=== PATIENT | female | born 1960 | race Caucasian/White ===

== ENCOUNTER 2021-06-11 14:53 | Inpatient (IN) | payer OTHER, SELFPAY ==
[2021-06-11] VITALS (7 sets, daily range): BP systolic 79–104; BP diastolic 56–78; PULSE 94–130; RESP 18–26; TEMP 36.3; O2SAT 95–98
--- NOTE | ~2021-06-11 | XR_ITS ---
EXAMINATION: XR chest 2V DATE: 06/11/2021 15:52 INDICATION: Right upper extremity infection TECHNIQUE: AP and lateral views of the chest are obtained. COMPARISON: None available FINDINGS: The lungs are free of acute opacities. There is no pleural effusion or pneumothorax. The ca rdiomediastinal silhouette is normal. There are bridging osteophytes at multiple levels in the spine, consistent with diffuse idiopathic skeletal hyperostosis (DISH). IMPRESSION: 1. No acute cardiopulmonary abnormality. Reviewed, dictated and finalized at location A.
--- NOTE | ~2021-06-11 | CT_ITS ---
EXAMINATION: CT UE RT w con INDICATION: Tunneling infection of the axilla and proximal right arm TECHNIQUE: Computed tomographic images of the right upper extremity were obtained after the administr ation of 100 cc of Omnipaque 350 intravenous contrast. The dose-length product (DLP) was 1154.99 mGy- cm. Automated exposure control and iterative reconstruction technique were employed. COMPARISON: None available FINDINGS: There is extensive soft tissue swelling, edema, and soft tissue gas in the medial aspect of the proximal right arm. Soft tissue gas tracks into the axilla. There is an approximately 2.5 x 1.1 cm superficial subcutaneous abscess seen on image 69. The inflammatory change appears to be superfici al to the fascia of the upper extremity musculature. The visualized osseous structures are unremarkab le. Incidental note is made of cholelithiasis. There is also a questionable right kidney mass. IMPRESSION: 1. Extensive soft tissue swelling, edema, and soft tissue gas in the medial aspect of the proximal ri ght arm with a 2.5 cm subcutaneous abscess of the right axilla. 2. Possible right kidney mass. Recommend correlation with urinalysis and follow-up CT or MRI without and with contrast. 3. Cholelithiasis. Reviewed, dictated and finalized at location A. IMPRESSION: 1. Extensive soft tissue swelling, edema, and soft tissue gas in the medial asp ect of the proximal right arm with a 2.5 cm subcutaneous abscess of the right a xilla. 2. Possible right kidney mass. Recommend correlation with urinalysis and follow -up CT or MRI without and with contrast. 3. Cholelithiasis.
--- NOTE | 2021-06-11 15:24 | ECG_ITS ---
Measurements Intervals [place] Rate: 118 P: [place]: 0 QRS: 99 QRSD: 99 T: -53 QT: 321 QTc: 451 Interpretive Statements ATRIAL FIBRILLATION WITH RAPID VENTRICULAR RESPONSE RIGHT AXIS DEVIATION INCOMPLETE RIGHT BUNDLE BRANCH BLOCK T WAVE ABNORMALITY IN ANTERIOR LEADS- CONSIDER ISCHEMIA BASELINE ARTIFACT- I, II, III, AVR, AVL, AVF ABNORMAL ECG Electronically Signed On 06-11-2021 15:35:55 CDT by Abelardo Biggs D.O.
[2021-06-11 15:35] LABS: Basophils Percent Auto 0.1 % (0.2-1.2); Eosinophils Percent Auto 0.2 % (0-4.4); Hematocrit 42.3 % (37.0-47.0); Hemoglobin 13.7 g/dL (12.0-15.0); Immature Granulocyte Absolute 1.14 K/mm3 (0.00-0.031); Immature Granulocyte Percent A 4.7 % (0-0.5); Lymphocytes Absolute Auto 1.12 K/mm3 (0.9-3.2); Lymphocytes Percent Auto 4.6 % (18.3-44.2); Mean Corpuscular HGB Conc 32.4 g/dl (32-36); Mean Corpuscular Hemoglobin 33.2 pg (26-34); Mean Corpuscular Volume 102.4 fl (80-100); Mean Platelet Volume 9.1 fl (7.4-10.4); Monocytes Absolute Auto 1.5 K/mm3 (0.1-0.6); Monocytes Percent Auto 6.3 % (2.6-8.5); Neutrophils Absolute Auto 20.4 K/mm3 (1.3-6.7); Neutrophils Percent Auto 84.1 % (45.5-73.1); Platelet Count Result 445 k/mm3 (150-375); Red Blood Count 4.13 M/mm3 (4.2-5.4); Red Cell Distribution Width 13.2 % (11.5-14.5); White Blood Count 24.3 K/mm3 (4.5-10.0)
[2021-06-11 15:44] LABS: Lactic Acid Reflex 2.4 mmol/L (0.7-2.1)
[2021-06-11 15:46] LABS: Partial Thromboplastin Time 26.6 SECONDS (22.3-36.8); Prothrombin Time 13.2 Seconds (11.1-14.7)
[2021-06-11 15:59] LABS: Estimated CRCL calculation 47 ml/min; Estimated Glomerular Filt Rate 36
[2021-06-11] MEDS: SODIUM CHLORIDE 0.9% IV 1,000 ML 999 ML IV CONT ×3 (16:12→17:02)
[2021-06-11 16:21] LABS: Alanine Aminotransferase 15 U/L (4-35); Albumin Level 3.1 g/dL (3.5-5.1); Alkaline Phosphatase 118 U/L (38-126); Anion Gap 14 mmol/L (8-16); Aspartate Amino Transferase 18 U/L (14-36); Bilirubin,Total 0.5 mg/dL (0.2-1.3); Blood Urea Nitrogen 52 mg/dL (7-17); Calcium 9.4 mg/dL (8.4-10.2); Carbon Dioxide 22 mmol/L (22-30); Chloride 96 mmol/L (98-107); Estimated CRCL calculation 47 ml/min; Estimated Glomerular Filt Rate 36; Glucose 91 mg/dL (65-110); Potassium 4.9 mmol/L (3.4-5.0); Sodium 132 mmol/L (137-145)
--- NOTE | 2021-06-11 16:38 | ED.WOUNDLAC ---
HPI - Wound/Laceration General Chief Complaint: Wound/Laceration Stated Complaint: wound on arm Time Seen by Provider: 06/11/21 15:20 History of Present Illness HPI narrative: Patient is a 60-year-old female who presents ER with a wound to her right axilla and arm. Patient reports she noticed a bump to her axillae and arm 3 days ago. She then saw her PCP who placed her on cephalexin. She reports she has developed redness and the wound is opened up and started to drain. Denies fevers or chills or sweats. She does have some weakness/fatigue. No known injury to the arm or break in skin that could have introduced infection. Does not have history of recurrent infections axilla. Patient denies any breast mass or known history of cancer. Related Data Home Medications Medication Instructions Recorded Confirmed aspirin [Adult Low Dose Aspirin] 81 mg PO DAILY 06/11/21 06/11/21 cephalexin 500 mg PO QID 06/11/21 06/11/21 lisinopril 40 mg PO DAILY 06/11/21 06/11/21 metoprolol tartrate 100 mg PO Q12H 06/11/21 06/11/21 Allergies Allergy/AdvReac Type Severity Reaction Status Date / Time Sulfa (Sulfonamide Allergy Unknown Verified 06/11/21 15:25 Antibiotics) Review of Systems Review of Systems: All systems reviewed & are unremarkable except as noted in HPI and below Constitutional: Constitutional: Denies chills, Reports fatigue, Denies fever(s) and Reports weakness ENT: Denies nasal congestion and Denies sore throat Cardiovascular: Cardiovascular: Denies chest pain and Denies radiating jaw, neck or arm pain Respiratory: Respiratory: Denies cough, Denies dyspnea and Denies wheezing Gastrointestinal: Gastrointestinal: Denies abdominal pain, Denies nausea and Denies vomiting Integumentary/Breasts: Comments: Draining wounds to the axilla and right arm with surrounding cellulitis discomfort. [facility] Past Medical History Medical History (Updated 06/11/21 @ 23:57 by Bhavesh Pizarro MD) Atrial fibrillation Hypertension Surgical History Surgical History (Updated 06/11/21 @ 23:53 by Bhavesh Pizarro MD) No pertinent past surgical history Family History Family History (Updated 06/11/21 @ 22:51 by Jovana Barry RN) Grandparent Acute myocardial infarction paternal grandmother, resulting in Mother Chronic obstructive pulmonary disease Hypertension Atrial fibrillation Sibling Chronic obstructive pulmonary disease Grandparent Brain tumor Maternal grandmother Social History Social History Smoking packs per day: 1 Smoking cigarettes per day: 20.0 Years smoked: 42 Smoking pack-years: 42.00 Smoking status: Current every day smoker Alcohol intake: current Drinks per week: 14 Substance use: never Gender identity (if verbalized by the patient): Female Spiritual care concerns: No Exam Narrative: GENERAL: Well-appearing, well-nourished, and in no acute distress. HEAD: Normocephalic, atraumatic. EYES: PERRL and EOMI. ENT: Mucous membranes moist. CHEST: Clear to auscultation. No respiratory distress. Breast exam with out discernible mass bilaterally. HEART: Tachycardic with an irregular regular rate and rhythm. Normal peripheral pulses. ABDOMEN: Soft, nontender, nondistended. EXTREMITIES: Normal range of motion. No edema. SKIN: Warm, dry. Cellulitis with open wound to the right upper extremity. There is a draining abscess to the axilla with cellulitis and induration surrounding it. Cellulitis extends to the mid upper arm midline of the humerus and has a half dollar sized area of necrotic tissue with some surrounding bruising. There is forensic dna analyst erythema in this area with draining purulent material as well. Cellulitis does not extend to the elbow. NEURO: Alert and oriented x3. PSYCH: Normal mood and affect. Course Course Emergency Course: Patient with persistently draining malodorous wound. Discussed case with general surgery and plan is to do bride in
[2021-06-11 17:10] LABS: CRP 25.3 mg/dL (<1.0)
--- NOTE | 2021-06-11 18:14 | PM.IMHP ---
H&P: HPI History of Present Illness Date/Time: 06/11/21 18:14 she is a 60-year-old female with past medical history of history of atrial fibrillation, hypertension and significant smoking history who came to the ED with complaints of right forearm and axilla wound and found smelling discharge. She started noticing and lost Sunday. She went to see her primary care physician who has started her on cephalexin. She was hypotensive with her blood pressure being in mid 90s. She was told to stop taking 2 of her blood pressure medication. She could recall hydrochlorothiazide but could not tell me about the other blood pressure medication. Her status does not improve and continued to have significant for smelling discharge and came into the ED for further medical management. She denied have any trauma or injury to the area. She denied have any fever chills. She denied have any nausea vomiting or abdominal pain. She denied have any chest pain. She has been complaining of shortness of breath with exertion but that seems her baseline as well. Her appetite is very poor. She has been a smoker and smoking 1 pack per day since she is 18-year-old. She also has lower extremity wound with drainage for the last few months now which she has been applying a bandage. She was found borderline hypotensive in the emergency department and received IV fluids. Her leukocyte count is 24.3. Lactic is 2.4. General surgery was consulted for incision and drainage. Chief Complaint: Right forearm and axilla wound with malodorous discharge Review of Systems Review of Systems: A comprehensive review of systems has been reviewed with the patient and most of the symptoms are negative except the one's mentioned above in HPI. [facility] Social History Social History Gender identity (if verbalized by the patient): Female Meds Home Medications and Allergies Home Medications Medication Instructions Recorded Confirmed Type cephalexin 500 mg PO QID 06/11/21 06/11/21 History lisinopril 40 mg PO DAILY 06/11/21 06/11/21 History metoprolol tartrate 100 mg PO Q12H 06/11/21 06/11/21 History Allergies Allergy/AdvReac Type Severity Reaction Status Date / Time Sulfa (Sulfonamide Allergy Unknown Verified 06/11/21 15:25 Antibiotics) Vital Signs Vital Signs - 24 hr 06/11/21 15:08 06/11/21 15:22 06/11/21 17:12 Temperature 36.3 C L Pulse Rate 94 112 H 118 H Respiratory Rate 18 26 H 24 H Blood Pressure 79/56 L 98/78 L Pulse Oximetry 95 97 98 Exam Narrative: General awake and alert not in acute distress Eyes PERRLA normal conjunctiva no discharge HEENT no discharge Neck supple CVS S1-S2 no murmur Respiratory no wheezes or crepitation respiration nonlabored GI soft nontender nondistended Chest wall no tenderness or deformity Back nontender no deformity [employer] alert oriented x3 Psychiatric cooperative appropriate mood and affect Extremities bandages in the cough area H&P: Results Labs Labs: Short CBC 06/11/21 Range/Units 15:26 WBC 24.3 H (4.5-10.0) K/mm3 Hgb 13.7 (12.0-15.0) g/dL Hct 42.3 (37.0-47.0) % Plt Count 445 H (150-375) k/mm3 BMP 06/11/21 06/11/21 15:26 15:55 Sodium 132 L Potassium 4.9 Chloride 96 L Carbon Dioxide 22 BUN 52 H Creatinine 1.50 H 1.50 Glucose 91 Calcium 9.4 Liver Function 06/11/21 Range/Units 15:26 Total Bilirubin 0.5 (0.2-1.3) mg/dL AST 18 (14-36) U/L ALT 15 (4-35) U/L Alkaline Phosphatase 118 (38-126) U/L Albumin 3.1 L (3.5-5.1) g/dL Assessment and Plan Assessment and plan (1) Cellulitis and abscess of other specified site: Code(s): L03.818 - Cellulitis of other sites; L02.818 - Cutaneous abscess of other sites Status: Acute Assessment and Plan: she has received Zosyn in the emergency department. I will add vancomycin to her regimen. Wound culture have been sent from the emergency de
[2021-06-11 18:32] LABS: Reflex Lactic Acid Yes or No Add Lactic
[2021-06-11 20:28] LABS: Basophils Absolute Auto 0.2 K/mm3 (0.0-0.1); Basophils Percent Auto 0.9 % (0.2-1.2); Eosinophils Percent Auto 0.1 % (0-4.4); Hematocrit 41.6 % (37.0-47.0); Hemoglobin 13.3 g/dL (12.0-15.0); Immature Granulocyte Absolute 0.21 K/mm3 (0.00-0.031); Immature Granulocyte Percent A 0.9 % (0-0.5); Lymphocytes Absolute Auto 1.06 K/mm3 (0.9-3.2); Lymphocytes Percent Auto 4.7 % (18.3-44.2); Mean Corpuscular Hemoglobin 32.8 pg (26-34); Mean Corpuscular Volume 102.7 fl (80-100); Mean Platelet Volume 9.1 fl (7.4-10.4); Monocytes Absolute Auto 1.2 K/mm3 (0.1-0.6); Monocytes Percent Auto 5.4 % (2.6-8.5); Neutrophils Absolute Auto 19.6 K/mm3 (1.3-6.7); Platelet Count Result 409 k/mm3 (150-375); Red Blood Count 4.05 M/mm3 (4.2-5.4); Red Cell Distribution Width 13.1 % (11.5-14.5); White Blood Count 22.3 K/mm3 (4.5-10.0)
[2021-06-11 20:38] LABS: Prothrombin Time 13.2 Seconds (11.1-14.7)
[2021-06-11 20:39] LABS: Anion Gap 12 mmol/L (8-16); Blood Urea Nitrogen 47 mg/dL (7-17); Calcium 8.4 mg/dL (8.4-10.2); Carbon Dioxide 18 mmol/L (22-30); Chloride 103 mmol/L (98-107); Estimated CRCL calculation 54 ml/min; Estimated Glomerular Filt Rate 42; Glucose 83 mg/dL (65-110); Potassium 4.4 mmol/L (3.4-5.0); Sodium 133 mmol/L (137-145)
--- NOTE | 2021-06-11 21:15 | PC.NURSE ---
This patient, Alba Alcantara, was admitted to IMU Room 210-01. Patient oriented to hospital policies and general routines including ID bracelet, bed and alarms, visiting hours, pain management, procedures, bathroom and other care routines, personal items, smoking policy, room service/diet, and visiting hours. Information on how to activate the Rapid Response Team has been discussed. Patient encouraged to report perceived risks to care and to ask questions if they do not understand what they are told or what they should do.
[2021-06-11] MEDS: LACTATED RINGERS 1,000 ML 100 ML IV CONT (21:47)
[2021-06-11 23:12] LABS: Add Urine Microscopic? YES; Appearance Urine Clear (Clear); Bilirubin Urine Negative (Negative); Blood Urine 1+ (Negative); Color Urine Yellow (Yellow); Glucose Urine UA Negative (Negative); Ketones Urine Negative (Negative); Leukocyte Esterase Ur Negative LEU/UL (Negative); Nitrate Urine Negative (Negative); Protein Urine Negative (Negative); RBC Urine 0-2 /hpf (0-2); Squamous Epithelial Cell Urine Rare /hpf (Few); WBC Urine 0-3 /hpf
[2021-06-11] MEDS: CLINDAMYCIN 600 MG/D5W 50 ML 600 MG/50 ML PIGGYBACK 100 MG IVPB (23:33)
[2021-06-12 00:05] VITALS: BP 110/64; PULSE 100; RESP 20; TEMP 36.6; O2SAT 9
[2021-06-12 00:07] VITALS: O2SAT 98
--- NOTE | 2021-06-12 00:09 | PM.TDS ---
Transfer Discharge Sum: Prov Provider Date of admission: 06/11/21 18:08 Primary care physician: Yonas Rooney, Admitting clinician: Donovan Young MD Consults: 06/11/21 Consult to Physician Routine Comment: Consulting Provider: call center support representative/ group to consult: general Surgery Reason for consultation: cellulitis with abscess Has provider been notified: No Wound/ET Consult Routine Reason for Consult:: Wounds on lower extremities 06/11/21 17:55 Consult to Physician Routine Comment: Consulting Provider: call center support representative/MD group to consult: Wilberto Reason for consultation: arm wound Has provider been notified: Yes DS: Admitting Diagnosis Admitting Diagnosis Cellulitis with abscess, sepsis DS: Discharge Diagnosis Discharge Diagnosis (1) Sepsis: Qualifiers: Sepsis type: sepsis due to unspecified organism Sepsis acute organ dysfunction status: with acute organ dysfunction Severe sepsis acute organ dysfunction type: acute renal failure Acute renal failure type: unspecified Severe sepsis shock status: without septic shock Qualified Code(s): A41.9 - Sepsis, unspecified organism; R65.20 - Severe sepsis without septic shock; N17.9 - Acute kidney failure, unspecified Code(s): A41.9 - Sepsis, unspecified organism Status: Acute (2) Hypotension: Qualifiers: Hypotension type: hypotension due to hypovolemia Qualified Code(s): I95.89 - Other hypotension; E86.1 - Hypovolemia Code(s): I95.9 - Hypotension, unspecified Status: Acute (3) Necrotizing fasciitis of upper arm: Code(s): M72.6 - Necrotizing fasciitis Status: Acute (4) Mass of kidney: Code(s): N28.89 - Other specified disorders of kidney and ureter Status: Acute Transfer Discharge Sum: Med Medications Active and Home Medications: Home Medications aspirin [Adult Low Dose Aspirin] 81 mg PO DAILY 06/11/21 [History Confirmed 06/11/21] cephalexin 500 mg PO QID 06/11/21 [History Confirmed 06/11/21] lisinopril 40 mg PO DAILY 06/11/21 [History Confirmed 06/11/21] metoprolol tartrate 100 mg PO Q12H 06/11/21 [History Confirmed 06/11/21] Active Medications Acetaminophen (Acetaminophen 325 Mg Tablet) 650 mg PO Q6HR PRN PRN Reason: Mild Pain (1-3) or Fever Hydrocodone Bitart/Acetaminophen (Hydrocodone/Acetaminophen (*Crx) 5-325 Mg Tablet) 1 tab PO Q6HR PRN PRN Reason: Moderate Pain (4-6) Al Hydrox/Mg Hydrox/Simethicone (Mag Hydrox/Al Hydrox/Simeth 30 Ml Udc) 30 ml PO QID PRN PRN Reason: Dyspepsia Docusate Sodium (Docusate Sodium 100 Mg Capsule) 100 mg PO BID MACEY Enoxaparin Sodium (Enoxaparin 40 Mg/0.4 Ml Syringe) 40 mg SUB-Q DAILY MACEY Piperacillin/Tazobactam/Dextrose (Zosyn 3.375 Gm/D5w 50ml Pm) 3.375 gm in 50 mls @ 100 mls/hr IVPB Q6HR [facility] Sodium Chloride (Normal Saline Iv) 1,000 mls @ 125 mls/hr IV CONT .Q8H [facility]Y Lactated Ringer's (Lr - Lactated Ringers Iv) 1,000 mls @ 100 mls/hr IV CONT .Q10H [facility] Last Admin: 06/11/21 21:47 Dose: 100 mls/hr Documented by: Vancomycin HCl (Vancomycin 1,500 Mg/D5w 500 Ml) 1,500 mg in 500 mls @ 333.333 mls/hr IVPB Q24H [facility] Last Infusion: 06/11/21 23:18 Dose: Infused Documented by: Morphine Sulfate (Morphine Sulfate (*Crx) 2 Mg/Ml Inj) 2 mg IV PUSH Q6HR PRN PRN Reason: Pain Rated 7-10 Naloxone HCl (Naloxone Hcl 0.4 Mg/Ml Vial) 0.1 mg IV PUSH Q2M PRN PRN Reason: Opiate Reversal Ondansetron HCl (Ondansetron Inj 4 Mg/2 Ml Vial) 4 mg IV PUSH Q6H PRN PRN Reason: Nausea And Vomiting Transfer Discharge Sum: Hosp Hospital Course Hospital course: Alba Alcantara is a 60 year old female with a past medical history of Tobacco abuse, hypertension and atrial fibrillation not on chronic anticoagulation who presented to the ER due to wound in her right upper arm. 5 days ago she noticed a wound under her right arm with foul-smelling discharge. She went to her primary care physician the next day and received a script for Keflex which she started taki
== END 2021-06-12 00:15 | disposition short-term general hospital (02) | DRG 720 ==
LOC: ANHED 18:03 → ANHIMU 23:57
PROVIDERS: Emergency Medicine; Admitting Provider Internal Medicine Critical Care Medicine; Emergency Provider Emergency Medicine; PCP Family Medicine; Visit Provider Internal Medicine
DX: A41.9 Sepsis, unspecified organism (principal); M72.6 Necrotizing fasciitis; L03.111 Cellulitis of right axilla; L03.113 Cellulitis of right upper limb; I48.91 Unspecified atrial fibrillation; I10 Essential (primary) hypertension
CPT/HCPCS: 36415; 71046; 73201; 80048; 80053; 81001; 83605; 85025; 85610; 85730; 86140; 87040; 87070; 87147; 87186; 87205; 93005; 96361; 96374; 99285; J2543; J3370; J7030; J7120; Q9967